=== PATIENT | female | born 1935 | race American Indian/Alaskan Native ===

== ENCOUNTER 2018-10-08 11:07 | Day surgery (SDC) | payer MEDICARE ==
--- NOTE | 2018-10-08 13:18 | Cardiac Catherization Report ---
TYPE OF PROCEDURE`: Fluoroscopy. 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 Images were taken in the RAYA projection, NARDA projection, and AP projection. There was no obvious lead dislodgement. No obvious lead fracture. COMPLICATIONS: None. ASSESSMENT AND PLAN: The patient should follow up with her licensed electrician in 1 month. JOB# [id number] MMW/NTS
== END 2018-10-08 13:10 | disposition home or self-care (01) ==
LOC: CATHLABREC 11:07
PROVIDERS: ATTEND Internal Medicine Cardiovascular Disease
DX: R00.2 Palpitations (principal)
CPT/HCPCS: 76000